=== PATIENT | female | born 1960 | race African-American/Black ===

== ENCOUNTER 2016-10-21 08:25 | Observation (INO) | payer SELFPAY ==
[~2016-10-21] VITALS: Ht 162.6 cm; Wt 85.0 kg
[~2016-10-21 08:25] MED LIST: AMLO10 PO; CARV3.125 PO
[2016-10-21 08:28] VITALS: BP 157/76; PULSE 92; RESP 20; TEMP 98.5; O2SAT 97
[2016-10-21 08:58] LABS: BASOPHIL % 0.5 % (0.0-2.0); EOSINOPHIL # 0.1 TH/MM3 (0-0.4); EOSINOPHIL % 1.4 % (0.0-4.0); HEMATOCRIT 43.8 % (35.0-46.0); HEMO FLAGS DIFF FINAL; LYMPH % 42.7 % (9.0-44.0); LYMPHOCYTE # 2.7 TH/MM3 (1.0-4.8); MEAN CELL VOLUME 97.3 FL (80.0-100.0); MEAN CORPUSCULAR HEMOGLOBIN 31.9 PG (27.0-34.0); MEAN CORPUSCULAR HGB CONC 32.8 % (32.0-36.0); MONO % 8.2 % (0.0-8.0); NEUT % 47.2 % (16.0-70.0); PLATELET COUNT 249 TH/MM3 (150-450); RED BLOOD COUNT 4.51 MIL/MM3 (4.00-5.30); RED CELL DISTRIBUTION WIDTH 13.9 % (11.6-17.2); WHITE BLOOD COUNT 6.3 TH/MM3 (4.0-11.0)
[2016-10-21 09:09] LABS: ANION GAP 7 MEQ/L (5-15); BICARBONATE 28.1 MEQ/L (21.0-32.0); BLOOD UREA NITROGEN 10 MG/DL (7-18); CHLORIDE 107 MEQ/L (98-107); GLOMERULAR FILTRATION RATE 102 ML/MIN (>89); POTASSIUM 3.7 MEQ/L (3.5-5.1); SODIUM (NA) 142 MEQ/L (136-145)
[2016-10-21 09:13] LABS: CREATINE KINASE 132 U/L (26-192)
[2016-10-21] MEDS ORDERED: NITROGLYCERIN 2% OINT 1 GM PACKET TOPICAL ONE (09:15)
[2016-10-21] MEDS ORDERED: ASPIRIN 325 MG TAB PO ONE (09:15)
[2016-10-21 09:26] LABS: CKMB 0.9 NG/ML (0.5-3.6)
--- NOTE | 2016-10-21 09:51 | PD ---
HPI Chief Complaint: Chest Pain Time Seen by Provider: 09:13 Travel History International Travel<30 days: No Contact w/Intl Traveler<30days: No Traveled to known affect area: No History of Present Illness HPI 56-year-old female with history of hypertension, presents to the ER today for several weeks' history of intermittent left-sided chest discomfort which she currently rates it a 6 out of 10, coughing, worse with coughing, and nausea. She denies any shortness of breath. She has noticed also that she has had some increase leg swelling on both sides. She denies any fevers or other symptoms. Symptoms worsened yesterday. Modifying Factors: None Associated Signs & Symptoms: Coughing, nausea, shortness of breath Risk Factors: Hypertension PFSH Past Medical History Hx Anticoagulant Therapy: No Anemia: Yes Arthritis: Yes Asthma: No Blood Disorders: No Anxiety: Yes Depression: Yes Heart Rhythm Problems: No Cancer: No Cardiac Catheterization: No Cardiovascular Problems: Yes High Cholesterol: Yes Chemotherapy: No Chest Pain: Yes Congestive Heart Failure: No COPD: Yes Cerebrovascular Accident: No Diabetes: No Diminished Hearing: No Endocrine: No Gastrointestinal Disorders: Yes GERD: Yes Genitourinary: No Headaches: Yes Hiatal Hernia: No Hypertension: Yes Immune Disorder: No Musculoskeletal: Yes Neurologic: Yes Psychiatric: No Reproductive: No Respiratory: Yes Myocardial Infarction: No Pneumonia: Yes Radiation Therapy: No Sleep Apnea: No Thyroid Disease: No Ulcer: Yes Influenza Vaccination: No PNEUMOCCOCAL Vaccine (Year): 2 ?: Not Menopausal: Yes : 10 Para: 6 Miscarriage: 1 : 3 Past Surgical History AICD: No Coronary Artery Bypass Graft: No Hysterectomy: No Joint Replacement: No Pacemaker: No Other Surgery: No Social History Alcohol Use: No Tobacco Use: Yes (~3 PER DAY ) Substance Use: No Allergies-Medications (Allergen,Severity, Reaction): Coded Allergies: Advil (Verified Allergy, Severe, Rash, 10/21/16) Reported Meds & Prescriptions Reported Meds & Active Scripts Active Coreg 3.125 mg (Carvedilol) 3.125 Mg Tab 1 Tab PO BID 30 Days Norvasc (Amlodipine Besylate) 10 Mg Tab 10 Mg PO DAILY 30 Days Review of Systems Except as stated in HPI: all other systems reviewed are Neg Physical Exam Narrative GENERAL: Well-developed middle age after [place] female patient currently not in acute distress. SKIN: Focused skin assessment warm/dry. HEAD: Atraumatic. Normocephalic. EYES: Pupils equal and round. No scleral icterus. No injection or drainage. ENT: No nasal bleeding or discharge. Mucous membranes pink and moist. NECK: Trachea midline. No JVD. CARDIOVASCULAR: Regular rate and rhythm. No murmur appreciated. RESPIRATORY: No accessory muscle use. Clear to auscultation. Breath sounds equal bilaterally. GASTROINTESTINAL: Abdomen soft, non-tender, nondistended. Hepatic and splenic margins not palpable. MUSCULOSKELETAL: No obvious deformities. No clubbing. No cyanosis. No edema. NEUROLOGICAL: Awake and alert. No obvious cranial nerve deficits. Motor grossly within normal limits. Normal speech. PSYCHIATRIC: Appropriate mood and affect; insight and judgment normal. Data Data Last Documented VS Vital Signs Date Time Temp Pulse Resp B/P Pulse Ox O2 Delivery O2 Flow Rate FiO2 10/21/16 10:01 70 18 199/101 99 Room Air 10/21/16 08:28 98.5 Orders Electrocardiogram (10/21/16 08:31) Complete Blood Count With Diff (10/21/16 08:31) Basic Metabolic Panel (Bmp) (10/21/16 08:31) Ckmb (Isoenzyme) Profile (10/21/16 08:31) Troponin I (10/21/16 08:31) CKMB (10/21/16 08:45) CKMB% (10/21/16 08:45) B-Type Natriuretic Peptide (10/21/16 09:13) Aspirin (Aspirin) (10/21/16 09:15) Nitroglycerin 2% Oint (Nitroglycerin 2% (10/21/16 09:15) Labs Laboratory Tests Test 10/21/16 10/21/16 08:45 09:55 White Blood Count 6.3 TH/MM3 Red Blood Count 4.51 MIL/MM3 Hemoglobin 14.4 GM/DL Hematocrit 43.8 % Mean Corpuscular Volume 97.3 FL Mean Corpuscular Hemoglobin 31.9 PG Mean Corpuscular Hemoglobin 32.8 % Concent Red Cell Distribution Width 13.9 % Platelet Count 249 TH/MM3 Mean Platelet Volume 8.4 FL Neutrophils (%) (Auto) 47.2 % Lymphocytes (%) (Auto) 42.7 % Monocytes (%) (Auto) 8.2 % Eosinophils (%) (Auto) 1.4 % Basophils (%) (Auto) 0.5 % Neutrophils # (Auto) 3.0 TH/MM3 Lymphocytes # (Auto) 2.7 TH/MM3 Monocytes # (Auto) 0.5 TH/MM3 Eosinophils # (Auto) 0.1 TH/MM3 Basophils # (Auto) 0.0 TH/MM3 CBC Comment DIFF FINAL Differential Comment Sodium Level 142 MEQ/L Potassium Level 3.7 MEQ/L Chloride Level 107 MEQ/L Carbon Dioxide Level 28.1 MEQ/L Anion Gap 7 MEQ/L Blood Urea Nitrogen 10 MG/DL Creatinine 0.71 MG/DL Estimat Glomerular Filtration 102 ML/MIN Rate Random Glucose 91 MG/DL Calcium Level 8.7 MG/DL Total Creatine Kinase 132 U/L Creatine Kinase MB 0.9 NG/ML Troponin I LESS THAN 0.02 NG/ML B-Type Natriuretic Peptide 84 PG/ML MDM Medical Decision Making Medical Screen Exam Complete: Yes Emergency Medical Condition: Yes Medical Record Reviewed: Yes Interpretation(s) EKG shows NSR, no ST elevation or depression, and no arrhythmias. No significant T-wave inversions. Laboratory Tests Test 10/21/16 08:45 Monocytes (%) (Auto) 8.2 % (0.0-8.0) Troponin I LESS THAN 0.02 NG/ML (0.02-0.05) Differential Diagnosis Left-sided chest painsACS versus gastritis versus pancreatitis versus lower lobe pneumonia versus costochondritis Narrative Course It was noted in the ER the chest patient's blood pressure was high initially. Patient states she does not take her blood pressure medications. She was given aspirin and nitroglycerin in the ER. Chest x-ray, EKG, lab work did not indicate significant acute processes. At this point, my plan would be to admit the patient for further evaluation a chest pain. Diagnosis Primary Impression: Atypical chest pain Admitting Information Admitting Physician Requests: Admit Royce Riley MD Oct 21, 2016 09:51
[2016-10-21 10:01] VITALS: BP 199/101; PULSE 70; RESP 18; O2SAT 99
[2016-10-21 11:25] VITALS: BP 166/93; PULSE 71; RESP 18; O2SAT 99
[2016-10-21] MEDS ORDERED: SODIUM CHLORIDE 0.9% FLUSH 10 ML FLUSH IV FLUSH PRN (11:30)
[2016-10-21] MEDS ORDERED: ACETAMINOPHEN 500 MG CPLT PO PRN (11:30)
[2016-10-21] MEDS ORDERED: NITROGLYCERIN 0.4 MG SL 25 TABS/BTL SL PRN (11:30)
[2016-10-21] MEDS ORDERED: ONDANSETRON HCL 4 MG/2 ML VIAL IV PRN (11:30)
[2016-10-21] MEDS ORDERED: LISINOPRIL 10 MG TAB PO SCH (12:00)
--- NOTE | 2016-10-21 13:42 | EKG ---
Date Performed: 10/21/2016 Time Performed: 08:38:11 PTAGE: 56 years EKG: Sinus rhythm WITH SINUS ARRHYTHMIA MINIMAL VOLTAGE CRITERIA FOR LVH, CONSIDER NORMAL VARIANT NONSPECIFIC T-WAVE A BNORMALITY BORDERLINE ECG Compared to prior tracing no significant change PREVIOUS TRACING : 12/27/2015 21.53 DOCTOR: Harpreet Hayes Interpretating Date/Time 10/21/2016 13:37:24
--- NOTE | 2016-10-21 13:54 | HHI.HP ---
HPI Primary Care Physician No Primary Care Physician Chief Complaint Chest pain History of Present Illness 56-year-old patient with known hypertension and has been out of her medication for 2 months presents to the emergency room for further evaluation of chest pain. Onset several weeks ago. Location left anterior chest more so under her left breast. Characterized as a sharp "stabbing pain duration seconds." No radiation. No associated symptoms. No known precipitating or relieving factors. No particular movements, position, or breathing makes pain better or worse. Endorses she has been coughing 2 weeks believes she has bronchitis, as she has had bronchitis many times in the past. States she wheezes all the time and this is normal for her. Continues to smoke tobacco and cigars. Pain is easily reproduced palpation. Review of Systems General: No fatigue,weakness, fever, chills, or recent illness. Has been in her general state of health. HEENT: No RODRIGUEZ, no vision changes, no nasal congestion or drainage, no dysphasia CV: As stated above. Continues to have reproducible chest pain with movement, breathing, or palpation. Occasionally feels as though her "heart skips a beat. " No dizziness. RESP: No recent URI, SOB, cough, or asthma. States "I wheeze all day every day , its my normal." GI: No nausea, vomiting, bowel changes, diarrhea, constipation, pain, distention , melena, blood in the stool. No change in appetite. : No dysuria, urgency, frequency. EXT: No lower leg edema, no paraesthesias MS: No discomfort or change in ROM. NEURO: No change in memory, dizziness, difficulty with balance, LOC, motor/ sensory deficits PSYCH: No anxiety or depression SKIN: No rashes, no concerning lesions Past Family Social History Allergies: Coded Allergies: Advil (Verified Allergy, Severe, Rash, 10/21/16) Past Medical History Hypertension (no meds 2 months), arthritis, anxiety, depression, gastric ulcer , anemia Past Surgical History None Reported Medications Reported Meds & Active Scripts Active Has been out of her medicine for 2 months believe she was taking amlodipine and atenolol. Active Ordered Medications Current Medications Medications (Trade) Dose Ordered Sig/Calos Route Start Time Stop Time Status Last Admin (Tylenol) 500 mg Q4H PRN PO 10/21/16 11:30 (Zofran Inj) 4 mg Q6H PRN IV 10/21/16 11:30 (Prinivil) 10 mg DAILY PO 10/21/16 12:00 10/21/16 12:22 (Nitrostat Sl) 0.4 mg Q5M PRN SL 10/21/16 11:30 (Aspirin) 325 mg DAILY PO 10/22/16 09:00 Family History Non-contributory for early onset cardiovascular disease Social History Known hypertensionnoncompliant with meds, no known diabetes or hyperlipidemia. Smokes 2 cigarettes daily and cigars throughout the day. Denies any alcohol or illegal drug use. She is currently unemployed, states she is sedentary. Does not have insurance or a medical provider at this time. Past cardiac testing 09/22/14chemical stress test unremarkable Physical Exam Vital Signs Vital Signs Date Time Temp Pulse Resp B/P Pulse Ox O2 Delivery O2 Flow Rate FiO2 10/21/16 11:25 71 18 166/93 99 Room Air 10/21/16 10:01 70 18 199/101 99 Room Air 10/21/16 09:05 70 18 96 Room Air 10/21/16 08:28 98.5 92 20 157/76 97 Room Air Physical Exam GENERAL: Alert WN, WD, NAD, pleasant, obese, female HEAD: NC, AT EYES: Sclera clear, conjunctiva without injection, pupils equal and round NECK: Supple, no masses, trachea midline CV: RRR, without murmur, rub, gallop, no JVD, S1-S2 no S3-S4. No carotid or femoral bruits. RESP: Clear lungs throughout bilateral, no crackles, wheeze, rhonchi, symmetrical chest rise, nonlabored, able to speak in full sentences ABD: Soft, NT, ND, obese, no masses, positive bowel tones EXT: Pulses +24, no dependent edema MS: Left anterior chest wall pain reproducible upon palpation. Normal tone 4 extremities, nontender, no obvious deformities, full range of motion NEURO: CN II through CN XII grossly intact, motor strength 5/5, gait WNL PSYCH: A+O 3, pleasant affect, appropriate speech, appropriate mood and affect , insight and judgment SKIN: Normal turgor, normal texture, no lesions, no rashes, brisk cap refill, even hair distribution Laboratory Laboratory Tests Test 10/21/16 10/21/16 08:45 09:55 White Blood Count 6.3 Red Blood Count 4.51 Hemoglobin 14.4 Hematocrit 43.8 Mean Corpuscular Volume 97.3 Mean Corpuscular Hemoglobin 31.9 Mean Corpuscular Hemoglobin 32.8 Concent Red Cell Distribution Width 13.9 Platelet Count 249 Mean Platelet Volume 8.4 Neutrophils (%) (Auto) 47.2 Lymphocytes (%) (Auto) 42.7 Monocytes (%) (Auto) 8.2 Eosinophils (%) (Auto) 1.4 Basophils (%) (Auto) 0.5 Neutrophils # (Auto) 3.0 Lymphocytes # (Auto) 2.7 Monocytes # (Auto) 0.5 Eosinophils # (Auto) 0.1 Basophils # (Auto) 0.0 CBC Comment DIFF FINAL Differential Comment Sodium Level 142 Potassium Level 3.7 Chloride Level 107 Carbon Dioxide Level 28.1 Anion Gap 7 Blood Urea Nitrogen 10 Creatinine 0.71 Estimat Glomerular Filtration 102 Rate Random Glucose 91 Calcium Level 8.7 Total Creatine Kinase 132 Creatine Kinase MB 0.9 Troponin I LESS THAN 0.02 B-Type Natriuretic Peptide 84 Result Diagram: 10/21/16 0845 10/21/16 0845 Imaging Last Impressions Chest X-Ray 10/21/16 0000 Signed Impressions: Service Date/Time: Sunday, October 21, 2016 15:00 - CONCLUSION: New small opacity in the left costophrenic angle region may represent a developing infiltrate or atelectasis. Young Riley MD Course EKGs 2 EKGs show normal sinus rhythm, left axis deviation, criteria for LVH, and nonspecific ST or T-segment changes Assessment and Plan Assessment and Plan #1 Chest painadmitted to chest pain center. Ruled out with 2 sets of EKGs and cardiac enzymes, seen and evaluated by Dr. Marcelo Taylor. After evaluation may by fork assembler, patient's chest discomfort clearly musculoskeletal and not cardiac in nature. No further testing required. #2 Hypertensioncase management consult for possible [place] blue card. Amlodipine 5 mg daily and atenolol 25 mg twice a day prescriptions will be provided upon discharge. Instructed and educated patient in length regarding importance of tight blood pressure control, compliance with medication, compliance with follow-up with PCP, and low sodium diet. #3 Tobacco usestrongly encouraged and stressed the importance of tobacco sensation. Discussed and counseled patient to quit smoking both cigarettes and cigars. Instructed her on her risk of developing chronic lung disease with her complaints of daily wheezing. Encouraged her to follow-up with PCP regarding tools and/or medication for tobacco cessation. Janiya Parsons Oct 21, 2016 13:54
[2016-10-21] MEDS ORDERED: AMLO10TA2 PO (14:08)
[2016-10-21] MEDS ORDERED: ATEN25TA PO ×2 (14:08→14:55)
[2016-10-21 14:12] LABS: CREATINE KINASE 112 U/L (26-192)
[2016-10-21] MEDS ORDERED: AMLO5TAB2 PO (14:55)
--- NOTE | 2016-10-21 14:57 | HHI.DCPOC ---
Discharge Care Plan Diagnosis: (1) Musculoskeletal chest pain (2) Hypertension (3) Tobacco abuse Goals to Promote Your Health * To prevent worsening of your condition and complications * To maintain your health at the optimal level Directions to Meet Your Goals Take your medications as prescribed Follow your dietary instruction Follow activity as directed Keep your appointments as scheduled Take your immunizations and boosters as scheduled If your symptoms worsen call your PCP, if no PCP go to Urgent Care Center or Emergency Room Smoking is Dangerous to Your Health. Avoid second hand smoke Call the 24-hour hour crisis hotline for domestic abuse at Janiya Parsons Oct 21, 2016 14:56
[2016-10-21] MEDS ORDERED: amLODIPine BESYLATE 5 MG TAB PO ONE (15:00)
[2016-10-21 15:30] VITALS: PULSE 57
[2016-10-21 16:00] VITALS: BP 184/89; PULSE 60; RESP 20; TEMP 96.6; O2SAT 96
--- NOTE | 2016-10-21 16:01 | RADRPT ---
EXAM DATE/TIME: 10/21/2016 15:00 [facility] COMPARISON: CHEST SINGLE AP, December 27, 2015, 11:16. INDICATIONS : Chest pain with swollen lower extremities. MEDICAL HISTORY : None. SURGICAL HISTORY : None. ENCOUNTER: Initial ACUITY: 1 day PAIN SCORE: 4/10 LOCATION: Bilateral chest FINDINGS: There is new linear opacities in the left costophrenic angle without consolidation. Both hemidiaphra gms are well delineated. Right lung is clear. The heart is normal size. Stable tortuosity descendi ng thoracic aorta. CONCLUSION: New small opacity in the left costophrenic angle region may represent a developing infiltrate or atel ectasis. Young Riley MD on October 21, 2016 at 15:58 Board Certified Radiologist. This report was verified electronically.
[2016-10-21] MEDS ORDERED: SODIUM CHLORIDE 0.9% FLUSH 10 ML FLUSH IV FLUSH SCH (21:00)
[2016-10-22] MEDS ORDERED: ASPIRIN 325 MG TAB PO SCH (09:00)
--- NOTE | 2016-10-22 15:12 | EKG ---
Date Performed: 10/21/2016 Time Performed: 13:25:53 PTAGE: 56 years EKG: Sinus rhythm WITH OCCASIONAL VENTRICULAR PREMATURE COMPLEXES POSSIBLE RIGHT VENTRICULAR CONDUCTION DELAY MINIMAL VOLTAGE CRITERIA FOR LVH, CONSIDER NORMAL VARIANT NONSPECIFIC ST & T-WAVE ABNORMALITY BORDERLINE ECG PREVIOUS TRACING : 10/21/2016 08.38 Since previous tracing, no significant change noted DOCTOR: Marcelo Taylor Interpretating Date/Time 10/22/2016 15:10:39
== END 2016-10-21 21:33 | disposition home or self-care (01) ==
LOC: NEPE 08:25 → NEDA 11:04 → NEPFCDU 14:49
DX: R07.89 Other chest pain (principal); I10 Essential (primary) hypertension; R94.31 Abnormal electrocardiogram [ECG] [EKG]; F17.210 Nicotine dependence, cigarettes, uncomplicated; Z91.14 Patient's other noncompliance with medication regimen
CPT/HCPCS: 71010; 80048; 82550; 82552; 83880; 84484; 85025; 93005; 99285; G0378

== ENCOUNTER 2017-09-21 09:18 | Emergency (ER) | payer SELFPAY ==
[~2017-09-21] VITALS: Ht 165.1 cm; Wt 91.0 kg
[~2017-09-21 09:18] MED LIST changes: -AMLO10 PO; +AMLO5TAB2 PO; +ATEN25TA PO; -CARV3.125 PO
[2017-09-21 09:25] VITALS: BP_SYST 214; BP_SYST 241; BP_DIAS 115; BP_DIAS 97; PULSE 72; RESP 18; TEMP 98; O2SAT 100
[2017-09-21 10:59] VITALS: BP 213/110; PULSE 62; RESP 18; O2SAT 98
[2017-09-21 11:01] VITALS: BP 200/117
[2017-09-21] MEDS ORDERED: SODIUM CHLOR 0.9% 1000 ML INJ 1,000 ML IV ONE (11:09)
[2017-09-21] MEDS ORDERED: SODIUM CHLORIDE 0.9% FLUSH 10 ML FLUSH IVF PRN (11:15)
[2017-09-21] MEDS ORDERED: diphenhydrAMINE HCL 50 MG/ML VIAL IVP ONE (11:15)
[2017-09-21] MEDS ORDERED: PROCHLORPERAZINE INJ 10 MG/2 ML VIAL IVP ONE (11:15)
--- NOTE | 2017-09-21 11:29 | PD ---
HPI Chief Complaint: Headache Time Seen by Provider: 10:59 Travel History International Travel<30 days: No Contact w/Intl Traveler<30days: No Traveled to known affect area: No History of Present Illness HPI 57y female with a history of medication noncompliance and HTN presents to the ED c/o headache, nausea, intermittent chest pain, and extremity tingling for months. She comes in today because she does not want to deal with the headache anymore. Says her headache is mainly located in the frontal aspects and is associated with blurred vision. Says she has had intermittent chest pain for months is not complaining of any pain now. Patient says that her left arm and bilateral lower extremities feel tingling especially when she flexes her knees and elbows. Says that she has to sleep with her legs and arms straight at night to avoid the tingling sensation. She denies any head trauma. Says she has not taken her medication for blood pressure in several months because she does not have a primary care physician. She denies fever, chills, shortness of breath, abdominal pain, back pain. Says she was diagnosed with a "tumor" of some sort on her CT when she was last here in September 2016. She has not followed up regarding this finding. PFSH Past Medical History Hx Anticoagulant Therapy: No Anemia: Yes Arthritis: Yes Asthma: No Blood Disorders: No Anxiety: Yes Depression: Yes Heart Rhythm Problems: No Cancer: No Cardiac Catheterization: No Cardiovascular Problems: Yes (chest pain today) High Cholesterol: Yes Chemotherapy: No Chest Pain: Yes Congestive Heart Failure: No COPD: Yes Cerebrovascular Accident: No Diabetes: No Diminished Hearing: No Endocrine: No Gastrointestinal Disorders: Yes GERD: Yes Genitourinary: No Headaches: Yes Hiatal Hernia: No Hypertension: Yes Immune Disorder: No Musculoskeletal: Yes Neurologic: Yes Psychiatric: No Reproductive: No Respiratory: Yes Myocardial Infarction: No Pneumonia: Yes Radiation Therapy: No Sleep Apnea: No Thyroid Disease: No Ulcer: Yes PNEUMOCCOCAL Vaccine (Year): 2 Menopausal: Yes : 10 Para: 6 Miscarriage: 1 : 3 Past Surgical History AICD: No Coronary Artery Bypass Graft: No Hysterectomy: No Joint Replacement: No Pacemaker: No Other Surgery: No Social History Alcohol Use: No Tobacco Use: Yes (10 CIGARETTES/DAY) Substance Use: No Allergies-Medications (Allergen,Severity, Reaction): Coded Allergies: ibuprofen (Unverified Allergy, Severe, Rash, 09/21/17) Reported Meds & Prescriptions Reported Meds & Active Scripts Active Atenolol 25 Mg Tab 25 Mg PO BID Amlodipine (Amlodipine Besylate) 5 Mg Tab 5 Mg PO DAILY Review of Systems Except as stated in HPI: all other systems reviewed are Neg Physical Exam Narrative GENERAL: Well developed, well-nourished in mild distress, eyes closed upon evaluation SKIN: Focused skin assessment warm/dry. HEAD: Atraumatic. Normocephalic. EYES: Pupils equal and round. No scleral icterus. No injection or drainage. EOMI ENT: No nasal bleeding or discharge. Mucous membranes pink and moist. NECK: Trachea midline. No JVD. No midline tenderness CARDIOVASCULAR: Regular rate and rhythm. No murmur appreciated. RESPIRATORY: No accessory muscle use. Clear to auscultation. Breath sounds equal bilaterally. GASTROINTESTINAL: Abdomen soft, non-tender, nondistended. Hepatic and splenic margins not palpable. No CVA tenderness. No obvious pulsating mass of the abdomen MUSCULOSKELETAL: No obvious deformities. No clubbing. No cyanosis. No edema. NEUROLOGICAL: Awake and alert. No obvious cranial nerve deficits. Motor grossly within normal limits. Normal speech. Negative pronator drift, rapid alternating movements, [id number], finger to nose within normal limits. Sensation intact. PSYCHIATRIC: Appropriate mood and affect; insight and judgment normal. Data Data Last Documented VS Vital Signs Date Time Temp Pulse Resp B/P (MAP) Pulse Ox O2 Delivery O2 Flow Rate FiO2 09/21/17 13:23 09/21/17 13:02 66 18 99 Room Air 09/21/17 09:25 98.0 Orders Orders Electrocardiogram (09/21/17 ) Complete Blood Count With Diff (09/21/17 11:09) Comprehensive Metabolic Panel (09/21/17 11:09) Prothrombin Time / Inr (Pt) (09/21/17 11:09) Act Partial Throm Time (Ptt) (09/21/17 11:09) Ecg Monitoring (09/21/17 11:09) Iv Access Insert/Monitor (09/21/17 11:09) Oximetry (09/21/17 11:09) Sodium Chloride 0.9% Flush (Ns Flush) (09/21/17 11:15) Prochlorperazine Inj (Compazine Inj) (09/21/17 11:15) Diphenhydramine Inj (Benadryl Inj) (09/21/17 11:15) Sodium Chlor 0.9% 1000 Ml Inj (Ns 1000 M (09/21/17 11:09) B-Type Natriuretic Peptide (09/21/17 11:09) Ckmb (Isoenzyme) Profile (09/21/17 11:09) Magnesium (Mg) (09/21/17 11:09) Troponin I (09/21/17 11:09) Chest, Pa & Lat (09/21/17 11:09) Ct Brain W/O Iv Contrast(Rout) (09/21/17 ) Urinalysis - C+S If Indicated (09/21/17 11:50) Amlodipine (Norvasc) (09/21/17 12:00) Atenolol (Tenormin) (09/21/17 12:00) CKMB (09/21/17 11:35) CKMB% (09/21/17 11:35) Labs Laboratory Tests Test 09/21/17 11:35 09/21/17 12:10 White Blood Count 6.4 TH/MM3 Red Blood Count 4.60 MIL/MM3 Hemoglobin 14.8 GM/DL Hematocrit 44.1 % Mean Corpuscular Volume 95.8 FL Mean Corpuscular Hemoglobin 32.3 PG Mean Corpuscular Hemoglobin Concent 33.7 % Red Cell Distribution Width 14.0 % Platelet Count 224 TH/MM3 Mean Platelet Volume 8.5 FL Neutrophils (%) (Auto) 44.7 % Lymphocytes (%) (Auto) 42.5 % Monocytes (%) (Auto) 9.3 % Eosinophils (%) (Auto) 2.2 % Basophils (%) (Auto) 1.3 % Neutrophils # (Auto) 2.8 TH/MM3 Lymphocytes # (Auto) 2.7 TH/MM3 Monocytes # (Auto) 0.6 TH/MM3 Eosinophils # (Auto) 0.1 TH/MM3 Basophils # (Auto) 0.1 TH/MM3 CBC Comment DIFF FINAL Differential Comment Prothrombin Time 10.7 SEC Prothromb Time International Ratio 1.1 RATIO Activated Partial Thromboplast Time 27.7 SEC Blood Urea Nitrogen 13 MG/DL Creatinine 0.65 MG/DL Random Glucose 71 MG/DL Total Protein 8.1 GM/DL Albumin 3.3 GM/DL Calcium Level 8.4 MG/DL Magnesium Level 2.1 MG/DL Alkaline Phosphatase 113 U/L Aspartate Amino Transf (AST/SGOT) 29 U/L Alanine Aminotransferase (ALT/SGPT) 20 U/L Total Bilirubin 0.3 MG/DL Sodium Level 139 MEQ/L Potassium Level 4.9 MEQ/L Chloride Level 106 MEQ/L Carbon Dioxide Level 27.3 MEQ/L Anion Gap 6 MEQ/L Estimat Glomerular Filtration Rate 113 ML/MIN Total Creatine Kinase 159 U/L Creatine Kinase MB 0.5 NG/ML Troponin I LESS THAN 0.02 NG/ML B-Type Natriuretic Peptide 63 PG/ML Urine Color LIGHT-YELLOW Urine Turbidity CLEAR Urine pH 7.0 Urine Specific [place] 1.013 Urine Protein NEG mg/dL Urine Glucose (UA) NEG mg/dL Urine Ketones NEG mg/dL Urine Occult Blood TRACE Urine Nitrite NEG Urine Bilirubin NEG Urine Urobilinogen LESS THAN 2.0 MG/DL Urine Leukocyte Esterase NEG Urine RBC 1 /hpf Urine WBC LESS THAN 1 /hpf Urine Squamous Epithelial Cells 1 /hpf Microscopic Urinalysis Comment CULT NOT INDICATED MDM Medical Decision Making Medical Screen Exam Complete: Yes Emergency Medical Condition: Yes Differential Diagnosis Hypertensive urgency, hypertensive emergency, accelerated hypertension, medication noncompliance Narrative Course 57-year-old female presents emergency department complaining of nausea, headache , high blood pressure for several months. Patient decided to come in today because she is tired of dealing with her headache. Says she did take clonidine from her sister last night which is made her sleepy. Vital signs: Blood pressure initially 241/115, 200/117 once on the stretcher. Heart rate 62, 90% SaO2. EKG shows sinus rhythm with possible LVH, no STEMI changes. IVF, compazine, benedryl administered for headache. Administered her home BP meds, amlodipine and atenolol. Last Impressions Chest X-Ray 09/21/17 1109 Signed Impressions: Service Date/Time: Thursday, September 21, 2017 11:23 - CONCLUSION: No acute disease. Shelton Gonzalez MD FACR Head CT 09/21/17 0000 Signed Impressions: Service Date/Time: Thursday, September 21, 2017 11:42 - CONCLUSION: 1. No acute intracranial abnormality. 2. Stable small meningioma. Young Moser Jr., MD CBC & BMP Diagram 09/21/17 11:35 Total Protein 8.1, Albumin 3.3 L, Calcium Level 8.4 L, Magnesium Level 2.1, Alkaline Phosphatase 113, Aspartate Amino Transf (AST/SGOT) 29, Alanine Aminotransferase (ALT/SGPT) 20, Total Bilirubin 0.3 No proteinuria. Cardiac enzymes negative. BP improved to 183/103 after medications. Pt says she feels much better. I advised her to follow-up with [facility]. I strongly urged her to go straight from the hospital to as a health clinic for an appointment. Requires outpatient follow up of her meningioma. Patient be discharged with a short course of her blood pressure medications. I reiterated the need for her to follow-up with her primary care for medication and blood pressure monitoring. She states understanding and will comply. Diagnosis Primary Impression: Accelerated hypertension Additional Impression: Nonadherence to medication Referrals: [facility] Additional Instructions: Follow up with [facility] for your care. To avoid complications of your high blood pressure and headaches, I recommend you take your medications regularly. Long-standing high blood pressure can cause problems with your heart and other organs to include developing heart attacks, strokes, congestive heart failure, irregular rhythms which may cause or disability. Your head CT showed a meningioma which requires outpatient follow up. Scripts Atenolol (Atenolol) 25 Mg Tab 25 MG PO BID for Blood Pressure Management, #60 TAB 1 Refill Prov: Magi Shoemaker MD 09/21/17 Amlodipine (Amlodipine) 5 Mg Tab 5 MG PO DAILY for Blood Pressure Management, #30 TAB 1 Refill Prov: Magi Shoemaker MD 09/21/17 Disposition: 01 DISCHARGE HOME Condition: Stable Patricia Mc Sep 21, 2017 11:29
--- NOTE | 2017-09-21 11:38 | RADRPT ---
EXAM DATE/TIME: 09/21/2017 11:23 [facility] COMPARISON: No previous studies available for comparison. INDICATIONS : Chest pain. Patient complains of cough. MEDICAL HISTORY : H/O Bronchitis. SURGICAL HISTORY : None. ENCOUNTER: Initial ACUITY: 3 days PAIN SCORE: 6/10 LOCATION: Bilateral chest FINDINGS: PA and lateral views of the chest demonstrate the lungs to be symmetrically aerated without evidence of mass, infiltrate or effusion. The cardiomediastinal contours are unremarkable. Osseous structure s are intact. CONCLUSION: No acute disease. Shelton Gonzalez MD FACR on September 21, 2017 at 11:36 Board Certified Radiologist. This report was verified electronically.
[2017-09-21 11:49] LABS: AUTOMATED NEUTROPHIL # 2.8 TH/MM3 (1.8-7.7); BASOPHIL # 0.1 TH/MM3 (0-0.2); BASOPHIL % 1.3 % (0.0-2.0); EOSINOPHIL # 0.1 TH/MM3 (0-0.4); EOSINOPHIL % 2.2 % (0.0-4.0); HEMATOCRIT 44.1 % (35.0-46.0); HEMOGLOBIN 14.8 GM/DL (11.6-15.3); LYMPH % 42.5 % (9.0-44.0); LYMPHOCYTE # 2.7 TH/MM3 (1.0-4.8); MEAN CELL VOLUME 95.8 FL (80.0-100.0); MEAN CORPUSCULAR HEMOGLOBIN 32.3 PG (27.0-34.0); MEAN CORPUSCULAR HGB CONC 33.7 % (32.0-36.0); MEAN PLATELET VOLUME 8.5 FL (7.0-11.0); MONO % 9.3 % (0.0-8.0); MONOCYTE # 0.6 TH/MM3 (0-0.9); NEUT % 44.7 % (16.0-70.0); PLATELET COUNT 224 TH/MM3 (150-450); WHITE BLOOD COUNT 6.4 TH/MM3 (4.0-11.0)
[2017-09-21] MEDS ORDERED: amLODIPine BESYLATE 5 MG TAB PO ONE (12:00)
[2017-09-21] MEDS ORDERED: ATENOLOL 25 MG TAB PO ONE (12:00)
[2017-09-21 12:04] VITALS: O2SAT 99
[2017-09-21 12:04] LABS: INTERNATIONAL NORMALIZED RATIO 1.1 RATIO
[2017-09-21 12:06] LABS: PROTHROMBIN TIME - PATIENT 10.7 SEC (9.8-11.6)
[2017-09-21 12:07] LABS: ALT (GPT) 20 U/L (10-53)
--- NOTE | 2017-09-21 12:07 | RADRPT ---
EXAM DATE/TIME: 09/21/2017 11:42 [facility] COMPARISON: CT BRAIN W/O CONTRAST, December 27, 2015, 13:04. INDICATIONS : Cephalgia. RADIATION DOSE: 37.32 CTDIvol (mGy) MEDICAL HISTORY : Hypertension. Chronic obstructive pulmonary disease. SURGICAL HISTORY : None. ENCOUNTER: Initial ACUITY: 1 day PAIN SCALE: 5/10 LOCATION: cranial TECHNIQUE: Multiple contiguous axial images were obtained of the head. Using automated exposure control and adj ustment of the mA and/or kV according to patient size, radiation dose was kept as low as reasonably a chievable to obtain optimal diagnostic quality images. DICOM format image data is available electro nically for review and comparison. FINDINGS: CEREBRUM: A small partially calcified dural based mass is again seen involving the vertex overlying the left fr ontoparietal lobe. This measures 1.5 cm in size and is consistent with a meningioma. It is stable fro m the prior study. The ventricles are normal for age. No evidence of midline shift, mass lesion, hem orrhage or acute infarction. No extra-axial fluid collections are seen. POSTERIOR FOSSA: The cerebellum and brainstem are intact. The 4th ventricle is midline. The cerebellopontine angle i s unremarkable. EXTRACRANIAL: The visualized portion of the orbits is intact. SKULL: The calvaria is intact. No evidence of skull fracture. CONCLUSION: 1. No acute intracranial abnormality. 2. Stable small meningioma. Young Moser Jr., MD on September 21, 2017 at 12:01 Board Certified Radiologist. This report was verified electronically.
[2017-09-21 12:13] LABS: ALBUMIN 3.3 GM/DL (3.4-5.0); ALKALINE PHOSPHATASE 113 U/L (45-117); AST (GOT) 29 U/L (15-37); BICARBONATE 27.3 MEQ/L (21.0-32.0); BLOOD UREA NITROGEN 13 MG/DL (7-18); CALCIUM 8.4 MG/DL (8.5-10.1); CHLORIDE 106 MEQ/L (98-107); CREATININE 0.65 MG/DL (0.50-1.00); GLOMERULAR FILTRATION RATE 113 ML/MIN (>89); GLUCOSE,RANDOM 71 MG/DL (74-106); MAGNESIUM 2.1 MG/DL (1.5-2.5); SODIUM (NA) 139 MEQ/L (136-145); TOTAL BILIRUBIN ADULT 0.3 MG/DL (0.2-1.0); TOTAL PROTEIN 8.1 GM/DL (6.4-8.2); TROPONIN I LESS THAN 0.02 NG/ML (0.02-0.05)
[2017-09-21 12:34] LABS: BILIRUBIN, URINE NEG (NEG); BLOOD, URINE TRACE (NEG); GLUCOSE,URINE NEG (NEG); KETONE, URINE NEG (NEG); NITRITE,URINE NEG (NEG); SQUAMOUS EPITHELIAL CELL URINE 1 /hpf (0-5); URINE COLOR LIGHT-YELLOW (YELLW/STRAW); URINE LEUKOCYTE ESTERASE NEG (NEG)
[2017-09-21 13:02] VITALS: BP 188/106; PULSE 66; RESP 18; O2SAT 99
[2017-09-21] MEDS ORDERED: AMLO5TAB2 PO (13:23)
[2017-09-21] MEDS ORDERED: ATEN25TA PO (13:23)
--- NOTE | 2017-09-22 19:33 | EKG ---
Date Performed: 09/21/2017 Time Performed: 10:55:01 PTAGE: 57 years EKG: Sinus rhythm MODERATE VOLTAGE CRITERIA FOR LVH, CONSIDER NORMAL VARIANT NONSPECIFIC T-WAVE ABNORMALITY BORDERLINE ECG Since the PREVIOUS TRACING , no significant change noted PREVIOUS TRACIN10/21/2016 13.25 DOCTOR: Cecy Martin Interpretating Date/Time 09/22/2017 19:31:03
== END 2017-09-21 14:08 | disposition home or self-care (01) ==
LOC: NEPC 09:18
DX: I10 Essential (primary) hypertension (principal); R94.31 Abnormal electrocardiogram [ECG] [EKG]; F41.9 Anxiety disorder, unspecified; F32.9 Major depressive disorder, single episode, unspecified; E78.00 Pure hypercholesterolemia, unspecified; J44.9 Chronic obstructive pulmonary disease, unspecified; K21.9 Gastro-esophageal reflux disease without esophagitis; F17.210 Nicotine dependence, cigarettes, uncomplicated; Z91.14 Patient's other noncompliance with medication regimen
CPT/HCPCS: 70450; 71046; 80053; 81001; 82550; 82552; 83735; 83880; 84484; 85025; 85610; 85730; 93005; 96374; 96375; 99285; J0780; J1200; J7030